=== PATIENT | male | born 1960 | race Caucasian/White ===

== ENCOUNTER 2018-03-07 19:34 | Inpatient (IN) | payer OTHER ==
[2018-03-07 19:40] VITALS: BMI 30.4
--- NOTE | 2018-03-07 19:48 | PDOC ---
Attending Attestation - HPI HPI: 03/07/18 20:49 The patient is a 57 year old male, with a significant past medical history of multiple episodes of food allergies, who presents to the emergency department with an allergic reaction. The patient notes eating at a food truck at around 3: 30pm. The patient states he took a nap and woke up with swelling to his lower face and lip. The patient denies any difficulty swallowing. The patient denies any other symptoms. Allergies: Penicillins Past surgical history: None reported. Social history: Occasional alcohol use - Physicial Exam PE: 03/07/18 20:49 Agrees with the residents note. - Medical Decision Making 03/07/18 20:50 Documentation prepared by Remi Rivera, acting as medical data entry clerk for Cierra Gimenez DO, MD <Remi Rivera - Last Filed: 03/07/18 20:49> - Resident Resident Name: Kyle Daley - ED Attending Attestation I have performed the following: I have examined & evaluated the patient, The case was reviewed & discussed with the resident, I agree w/resident's findings & plan - Physicial Exam PE: 03/07/18 20:52 Agree with resident exam - Critical Care Time Total Critical Care Time: 35 Critical Care Statement: The care of this patient involved high complexity decision making to prevent further life threatening deterioration of the patient 's condition and/or to evaluate & treat vital organ system(s) failure or risk of failure. - Medical Decision Making 57-year-old male with acute ALLERGIC reaction and resulting angioedema for several hours after eating at a food truck Patient failed to improve after IV Solu-Medrol, Pepcid and Benadryl Case discussed with ICU staff for admission for airway monitoring At this time patient has no glottic edema, uvula is within normal limits and there is no acute airway compromise There is no indication for intubation at this time 03/07/18 20:53 <Cierra Gimenez - Last Filed: 03/07/18 20:54>
[2018-03-07] MEDS ORDERED: SODIUM CHLORIDE 1,000 ML IV STA (19:51)
[2018-03-07] MEDS ORDERED: FAMOTIDINE 20 MG/50 ML IVPB 20 MG/50 ML MG IVPB ONE ×2 (19:51→20:05)
[2018-03-07] MEDS ORDERED: methylPREDNISolone NA SUCC 125 MG/2 ML VIAL IVPUSH ONE (19:51)
[2018-03-07] MEDS ORDERED: methylPREDNISolone NA SUCC 125 MG/2 ML VIAL ONE (20:05)
[2018-03-07 20:07] LABS: HEMATOCRIT 45.5 % (35.4-49); HEMOGLOBIN 15.1 GM/dL (11.7-16.9); MCH 29.2 pg (25.7-33.7); MCHC 33.3 g/dl (32.0-35.9); MEAN CELL VOLUME 87.6 fl (80-96); PLATELET COUNT 247 K/MM3 (134-434); RBC 5.19 M/mm3 (4.00-5.60); RDW 13.8 % (11.9-15.9); WHITE BLOOD COUNT 8.3 K/mm3 (4.0-10.0)
[2018-03-07 20:41] LABS: ALBUMIN 3.6 g/dl (3.4-5.0); ALK PHOS 109 U/L (45-117); ANION GAP 7 MMOL/L (8-16); BILIRUBIN,TOTAL 0.2 mg/dL (0.2-1); BLOOD UREA NITROGEN 14 mg/dL (7-18); CALCIUM 8.8 mg/dL (8.5-10.1); CHLORIDE 105 mmol/L (98-107); CO2 31 mmol/L (21-32); CREATININE 1.3 mg/dL (0.55-1.3); GLUCOSE,RANDOM 117 mg/dL (74-106); POTASSIUM 4.1 mmol/L (3.5-5.1); SGOT/AST 20 U/L (15-37); SGPT/ALT 43 U/L (13-61); SODIUM 142 mmol/L (136-145); TOT PROT 6.8 g/dl (6.4-8.2)
--- NOTE | 2018-03-07 20:43 | PDOC ---
History of Present Illness - General Chief Complaint: Allergic Reaction Stated Complaint: ALLERGIC REACTION Time Seen by Provider: 03/07/18 19:44 History Source: Patient Exam Limitations: No Limitations - History of Present Illness Initial Comments: 03/07/18 20:46 Patient is a 57M with a history of multiple food allergies here today complaining of swelling to his lips and mouth that started an hour prior to presentation. Endorses a sensation of swelling to his throat. Denies shortness of breath, wheezing, chest pain, nausea, vomiting and lightheadedness. Has history of other reactions, no ICU stays or intubations. Past History - Past Medical History Allergies/Adverse Reactions: Allergies Allergy/AdvReac Type Severity Reaction Status Date / Time egg Allergy Verified 03/08/18 04:29 milk Allergy Verified 03/08/18 04:29 Penicillins Allergy Verified 03/07/18 19:37 plantain Allergy Verified 03/08/18 04:29 soybean Allergy Verified 03/08/18 04:29 Home Medications: Ambulatory Orders Alfuzosin HCl [Alfuzosin HCl ER] 10 mg PO DAILY 03/07/18 COPD: No - Immunization History Immunization Up to Date: Yes - Suicide/Smoking/Psychosocial Hx Smoking History: Never smoked Have you smoked in the past 12 months: No Information on smoking cessation initiated: No Hx Alcohol Use: No Drug/Substance Use Hx: No Substance Use Type: None Review of Systems - Review of Systems Comments:: 03/07/18 20:52 GENERAL/CONSTITUTIONAL: No fever or chills. No weakness. HEAD, EYES, EARS, NOSE AND THROAT: No change in vision. +lip swelling +throat swelling. CARDIOVASCULAR: No chest pain or shortness of breath RESPIRATORY: No cough, wheezing, or hemoptysis. GASTROINTESTINAL: No nausea, vomiting, diarrhea or constipation. GENITOURINARY: No dysuria, frequency, or change in urination. MUSCULOSKELETAL: No joint or muscle swelling or pain. No neck or back pain. SKIN: No rash NEUROLOGIC: No headache, vertigo, loss of consciousness, or change in strength/ sensation. ALLERGIC/IMMUNOLOGIC: No hives or skin allergy. +lip swelling *Physical Exam - Vital Signs Last Vital Signs Temp Pulse Resp BP Pulse Ox 98.0 F 74 21 H 172/94 H 97 03/07/18 19:38 03/07/18 19:38 03/07/18 19:38 03/07/18 19:38 03/07/18 19:38 - Physical Exam Comments: 03/07/18 20:53 GENERAL: Awake, alert, and fully oriented, in no acute distress HEAD: No signs of trauma, normocephalic, atraumatic EYES: PERRLA, EOMI, sclera anicteric, conjunctiva clear ENT: Swelling to lower lip, normal uvula, airway intact, ?tongue swelling NECK: Normal ROM, supple, no lymphadenopathy, JVD, or masses LUNGS: No distress, speaks full sentences, clear to auscultation bilaterally HEART: Regular rate and rhythm, normal S1 and S2, no murmurs, rubs or gallops, peripheral pulses normal and equal bilaterally. ABDOMEN: Soft, nontender, normoactive bowel sounds. No guarding, no rebound. No masses EXTREMITIES: Normal inspection, Normal range of motion, no edema. No clubbing or cyanosis. NEUROLOGICAL: Cranial nerves II through XII grossly intact. Normal speech, normal gait, no focal sensorimotor deficits SKIN: Warm, Dry, normal turgor, no rashes or lesions noted. Moderate Sedation - Procedure Monitoring Vital Signs: Procedure Monitoring Vital Signs Temperature 98.0 F 03/07/18 19:38 Pulse Rate 74 03/07/18 19:38 Respiratory Rate 21 H 03/07/18 19:38 Blood Pressure 172/94 H 03/07/18 19:38 O2 Sat by Pulse Oximetry (%) 97 03/07/18 19:38 ED Treatment Course - LABORATORY CBC & Chemistry Diagram: 03/08/18 05:15 03/08/18 05:15 - ADDITIONAL ORDERS Additional order review: Laboratory Results 03/07/18 20:00 Sodium 142 Potassium 4.1 Chloride 105 Carbon Dioxide 31 Anion Gap 7 L BUN 14 Creatinine 1.3 Creat Clearance w eGFR 57.31 Random Glucose 117 H Calcium 8.8 Total Bilirubin 0.2 AST 20 ALT 43 Alkaline Phosphatase 109 Total Protein 6.8 Albumin 3.6 03/07/18 19:57 RBC 5.19 MCV 87.6 MCHC 33.3 RDW 13.8 MPV 8.0 - RADIOLOGY Radiology Studies Ordered: Category Date Time Status CHEST X-RAY PORTABLE* [RAD] Stat Radiology 03/07/18 20:41 Ordered - Medications Given in the ED: ED Medications Discontinued Medications Generic Name Dose Route Start Last Admin Trade Name Freq PRN Reason Stop Dose Admin Diphenhydramine HCl 50 mg 03/07/18 19:51 03/07/18 20:17 Benadryl Injection - IVPUSH 03/07/18 19:52 50 mg ONCE ONE Administration Methylprednisolone Sodium Succinate 125 mg 03/07/18 19:51 03/07/18 20:17 Solu-Medrol - IVPUSH 03/07/18 19:52 125 mg ONCE ONE Administration Medical Decision Making - Medical Decision Making 03/07/18 20:54 Patient is a 57M with history of food allergies here today complaining of angioedema. Vitals normal. Airway intact. No anaphylaxis at this time. No reason to intubate. Steroids, benadryl, pepcid IV given. Will monitor and dispo to ICU. EKG shows normal sinus rhythm with rate of 71. No st elevations/depressions. Normal axis. Normal intervals. No significant t wave abnormalities. 03/08/18 06:53 Approved for ICU by Dr Castaneda. *DC/Admit/Observation/Transfer Diagnosis at time of Disposition: Angioedema - Discharge Dispostion Condition at time of disposition: Stable Decision to Admit order: Yes - Referrals - Patient Instructions - Post Discharge Activity
--- NOTE | 2018-03-07 21:01 | PN ---
Teaching Attending Note Name of Resident: Kelly Morocho ATTENDING PHYSICIAN STATEMENT I saw and evaluated the patient. I reviewed the resident's note and discussed the case with the resident. I agree with the resident's findings and plan as documented. SUBJECTIVE: The patient is a 57 year old male, with a significant past medical history of multiple episodes of food allergies, BPH and hypertension who presents to the ER with an allergic reaction. The patient notes eating at a food truck at around 3:30pm. The patient states he took a nap and woke up with swelling to his lower face and lip. The patient denies any difficulty swallowing or SOB. Had a similar episode about 1 year ago after he ate shrimp. No prior intubations. Feeling better after initial treatment in the ER. OBJECTIVE: Alert Vital Signs Period Temp Pulse Resp BP Sys/Hill Pulse Ox Last 24 Hr 98.0 F 74 21 172/94 97 HEENT: No Jaundice, eye redness or discharge, PERRLA, EOMI. No stridor. Normocephalic, atraumatic. External ears are normal and hearing is grossly intact. No nasal discharge. Neck: Supple, nontender. No palpable adenopathy or thyromegaly. No JVD Chest: Good effort. Clear to auscultation and percussion. Heart: Regular. No S3, rub or murmur Abdomen: Not distended, soft, nontender and no HSM. No rebound or guarding. Normoactive bowel sounds. Ext: Peripheral pulses intact. No leg edema. Skin: Warm and dry. No petechiae, rash or ecchymosis. Neuro: Alert. Oriented x3. CN 2-12 grossly intact. Sensation grossly intact in all four extremities and DTR are symmetric. Home Medications Medication Instructions Recorded Unobtainable Home Med List 0 dose .ROUTE UTDICT 10/03/13 Abnormal Lab Results 03/07/18 20:00 Anion Gap 7 L Random Glucose 117 H ASSESSMENT AND PLAN: 1. Angioedema - Being admitted to the ICU for close monitoring. Will continue solumedrol, Pepcid and benadryl and have an emergency tracheostomy kit by his bedside. Patient counseled about being careful with where he gets his food. 2. Obesity - Will provide patient all the necessary assistance, counseling and positive reinforcement to facilitate weight loss. Consult rn security. 3. Will add an antihypertensive drug tomorrow if BP remains high. Nonpharmacologic measures to control hypertension like weight loss, salt restriction and exercise discussed. 4. DVT prophylaxis - Lovenox 40 mg SQ q 24 hours. 5. Advance directives - Full code
--- NOTE | 2018-03-07 21:54 | HP ---
CHIEF COMPLAINT:angioedema x 6 hrs PCP: Dr. Guzmán HISTORY OF PRESENT ILLNESS: 57 y/o PMH BPH, significant hx for past food allergies with similar rxn- lower lip edema, angioedema, never intubated, who presents to the ED with c/o angioedema over the past six hours. As per pt, at 3:30PM he ate patel and rice at a halal truck. Shortly after, he took a nap, and woke up at 4pm to see that his lower lip and lower portion of his face was edematous. At this time, pt was with increased throat pressure, however never with trouble swallowing. Endorses recent RUE rash 2/2 poison susanne, as he works in construction. Has applied calamine lotion with mild relief. Denies GARDNER, fever, chills, SOB, wheezing, or changes in urinary or bowel function. Pt is allergic to plaintains, milk, eggs, soy beans, all of which cause angioedema. Also is allergic to PCN which causes hives. No recent known exposure to any of these components. No recent medication changes, or fam hx of allergies. ER course was notable for: (1) benadryl 50mg IVPx1 (2) medrol 125mg IVP x 1 (3) pepcid (4) NS Recent Travel: denies PAST MEDICAL HISTORY: as above PAST SURGICAL HISTORY: 3rd R digit injury Social History: works in construction as a welder and fitter. has chronic erythema on forehead Smoking: denies Alcohol: socially Drugs: denies Family History: mother DM, arthritis. father, brother- heart dz, Allergies Penicillins Allergy (Verified 03/07/18 19:37) - hives egg, milk, plaintain, soybean - angioedema HOME MEDICATIONS: Home Medications Medication Instructions Recorded Alfuzosin HCl [Alfuzosin HCl ER] 10 mg PO DAILY 03/07/18 confirmed with family member at bedside REVIEW OF SYSTEMS CONSTITUTIONAL: Absent: fever, chills, diaphoresis, generalized weakness, malaise, loss of appetite, weight change HEENT: +lip swelling Absent: rhinorrhea, nasal congestion, throat pain, throat swelling, difficulty swallowing, mouth swelling, ear pain, eye pain, visual changes CARDIOVASCULAR: Absent: chest pain, syncope, palpitations, irregular heart rate, lightheadedness , peripheral edema RESPIRATORY: Absent: cough, shortness of breath, dyspnea with exertion, orthopnea, wheezing, stridor, hemoptysis GASTROINTESTINAL: Absent: abdominal pain, abdominal distension, nausea, vomiting, diarrhea, constipation, melena, hematochezia GENITOURINARY: Absent: dysuria, frequency, urgency, hesitancy, hematuria, flank pain, genital pain MUSCULOSKELETAL: Absent: myalgia, arthralgia, joint swelling, back pain, neck pain SKIN: Absent: rash, itching, pallor HEMATOLOGIC/IMMUNOLOGIC: Absent: easy bleeding, easy bruising, lymphadenopathy, frequent infections ENDOCRINE: Absent: unexplained weight gain, unexplained weight loss, heat intolerance, cold intolerance NEUROLOGIC: Absent: headache, focal weakness or paresthesias, dizziness, unsteady gait, seizure, mental status changes, bladder or bowel incontinence PSYCHIATRIC: Absent: anxiety, depression, suicidal or homicidal ideation, hallucinations. PHYSICAL EXAMINATION Vital Signs - 24 hr 03/07/18 19:38 Temperature 98.0 F Pulse Rate 74 Respiratory 21 H Rate Blood Pressure 172/94 H O2 Sat by Pulse 97 Oximetry (%) GENERAL: Sitting up comfortably in bed. Awake, alert, and fully oriented, in no acute distress. on 2L NC HEAD: Normal with no signs of trauma. EYES: Pupils equal, round and reactive to light, extraocular movements intact, sclera anicteric, conjunctiva clear. EARS, NOSE, THROAT: Ears normal, nares patent, oropharynx clear without exudates. Moist mocous membranes. +mild uvula swelling however visualized. NECK: Normal range of motion, supple LUNGS: Breath sounds equal, clear to auscultation bilaterally. No wheezes, and no crackles. No accessory muscle use. HEART: Regular rate and rhythm, normal S1 and S2 without murmur, rub or gallop. ABDOMEN: Soft, nontender, not distended, normoactive bowel sounds, no guarding LOWER EXTREMITIES: 2+ pt pulses, warm, well-perfused. No calf tenderness. No peripheral edema. NEUROLOGICAL: Cranial nerves II-XII intact. 5/5 motor strength UE, LE . sensation intact PSYCHIATRIC: Cooperative. Good eye contact. SKIN: Warm, dry, normal turgor, +rash -dorsal R forearm - pruritic Laboratory Results - last 24 hr 03/07/18 03/07/18 19:57 20:00 WBC 8.3 RBC 5.19 Hgb 15.1 Hct 45.5 MCV 87.6 MCH 29.2 MCHC 33.3 RDW 13.8 Plt Count 247 MPV 8.0 Sodium 142 Potassium 4.1 Chloride 105 Carbon Dioxide 31 Anion Gap 7 L BUN 14 Creatinine 1.3 Creat Clearance w eGFR 57.31 Random Glucose 117 H Calcium 8.8 Total Bilirubin 0.2 AST 20 ALT 43 Alkaline Phosphatase 109 Total Protein 6.8 Albumin 3.6 ASSESSMENT/PLAN: 57 y/o PMH BPH, significant hx for past food allergies with similar rxn- lower lip edema, angioedema, never intubated, who presents to the ED with c/o angioedema over the past six hours after eating at a food truck. #Angioedema likely 2/2 food allergy -with significant allergy hx to multiple foods, with recent ingestion at food truck - likely allergen contamination -c/w pepcid, benadryl, medrol 40mg IVP TID -need to have emergency trach kit at bedside in case cannot protect airway -NPO until speech/swallow consult -ICU monitoring #BPH -on alfuzosin at home, will not start at this time -can restart on d/c #HTN- uncontrolled -was to start on bystolic by PCP, as per pt -as above, can start on d/c . less likely to cause angioedema -for now rec lifestyle mods #F/E/N no IVF req at this time continue to follow lytes NPO until speech and swallow eval #PPX DVT: lovenox 40mg SQ qd #Dispo ICU for airway monitoring. can d/c tomorrow if no issues protecting airway will likely need to go home on 1 week PO pred taper, w/pepcid, benadryl to prevent recurrence Visit type - Emergency Visit Emergency Visit: Yes ED Registration Date: 03/07/18 Care time: The patient presented to the Emergency Department on the above date and was hospitalized for further evaluation of their emergent condition. - New Patient This patient is new to me today: Yes Date on this admission: 03/08/18 - Critical Care Critical Care patient: Yes Total Critical Care Time (in minutes): 44 Critical Care Statement: The care of this patient involved high complexity decision making to prevent further life threatening deterioration of the patient 's condition and/or to evaluate & treat vital organ system(s) failure or risk of failure.
[2018-03-07] MEDS ORDERED: CHLORHEXIDINE GLUCONATE 4% CLEANSER FOR DECOLONIZATION TP SCH (22:00)
[2018-03-07] MEDS ORDERED: MUPIROCIN 2% TOPICAL OINTMENT FOR DECOLONIZATION NS SCH (22:00)
[2018-03-07] MEDS ORDERED: methylPREDNISolone NA SUCC 40 MG/1 ML VIAL IVPUSH SCH (22:00)
[2018-03-07] MEDS: FAMOTIDINE 20 MG/50 ML IVPB 20 MG/50 ML MG IVPB SCH (22:15)
[2018-03-07] MEDS ORDERED: SODIUM CHLORIDE 1,000 ML IV SCH (22:45)
[2018-03-08] MEDS ORDERED: methylPREDNISolone NA SUCC 40 MG/1 ML VIAL IVPUSH SCH (02:00)
[2018-03-08] MEDS ORDERED: methylPREDNISolone NA SUCC 40 MG/1 ML VIAL ONE (03:08)
[2018-03-08 05:45] LABS: BASO % 0.6 % (0-2.0); HEMATOCRIT 44.1 % (35.4-49); HEMOGLOBIN 14.7 GM/dL (11.7-16.9); LYMPH % 10.6 % (8-40); MCHC 33.3 g/dl (32.0-35.9); MEAN CELL VOLUME 87.1 fl (80-96); MEAN PLT VOLUME 7.9 fl (7.5-11.1); MONO % 0.8 % (3.8-10.2); PLATELET COUNT 238 K/MM3 (134-434); RBC 5.06 M/mm3 (4.00-5.60); RDW 13.8 % (11.9-15.9); WHITE BLOOD COUNT 7.9 K/mm3 (4.0-10.0)
[2018-03-08 06:30] LABS: ANION GAP 9 MMOL/L (8-16); BLOOD UREA NITROGEN 14 mg/dL (7-18); CALCIUM 8.5 mg/dL (8.5-10.1); CHLORIDE 111 mmol/L (98-107); CO2 23 mmol/L (21-32); CREATININE 1.2 mg/dL (0.55-1.3); GLUCOSE,RANDOM 173 mg/dL (74-106); MAGNESIUM 1.9 mg/dL (1.8-2.4); POTASSIUM 4.5 mmol/L (3.5-5.1); SODIUM 143 mmol/L (136-145)
[2018-03-08] MEDS ORDERED: POTASSIUM PHOSPHATE 30 MM in DEXTROSE 5%-WATER - 250 ML IVPB ONE (06:37)
[2018-03-08] MEDS ORDERED: FAMOTIDINE 20 MG/50 ML IVPB 20 MG/50 ML MG IVPB ONE (09:08)
[2018-03-08] MEDS: FAMOTIDINE 20 MG/50 ML IVPB 20 MG/50 ML MG IVPB SCH (09:24)
[2018-03-08 09:26] VITALS: TEMP 98
[2018-03-08] MEDS ORDERED: ENOXAPARIN NA (PORCINE) 40 MG/0.4 ML DISP.SYRIN SQ SCH (10:00)
[2018-03-08] MEDS ORDERED: predniSONE 20 MG TABLET (UD) PO SCH (10:00)
[2018-03-08] MEDS ORDERED: NAPH,MB-DB/K PH,MBDB POWDER PACKET PO SCH (10:00)
--- NOTE | 2018-03-08 14:21 | CONSULT ---
Admitting History and Physical - Admission History of Present Illness: Per EMR: 57 y/o PMH BPH, significant hx for past food allergies with similar rxn- lower lip edema, angioedema, never intubated, who presents to the ED with c/o angioedema over the past six hours after eating at a food truck. # -with significant allergy hx to multiple foods, with recent ingestion at food truck - likely allergen contamination Pt improved, tolerated regular diet in ER. History Source: Patient Limitations to Obtaining History: No Limitations, Language Barrier - Smoking History Smoking history: Never smoked Have you smoked in the past 12 months: No - Alcohol/Substance Use Hx Alcohol Use: No History - Admission Reason For Visit: ANGIOEDEMA - Diagnostics X-ray: Report Reviewed - General Mental Status: Alert and Oriented, Awake and Alert, Able to Follow Commands Attention: Intact Ability to Follow Directions: Excellent Head/Neck Control: WFL - Hearing Hearing: Functional Speech Evaluation - Communication Primary Language: B[place] Secondary Language: [place] Communication: Yes: Within Normal Limits Oral Expression Ability: Yes: No Impairment - Speech Production Able to Make Needs Known: Yes: WNL Intelligibility: Yes: WNL - Speech Characteristics Voice Loudness: Normal Voice Pitch: Yes: Normal Voice Phonatory-based Quality: Yes: Normal Speech Pattern: Normal Speech Clarity: < 100% Nasal Resonance: Normal Articulation: Yes: Precise - Language/Auditory Comprehension Follows: Yes: 2 Stage Simple Commands - Language/Verbal Expression Functional Communication Status: Yes: WNL - Swallow Evaluation/Bedside Assessment Current Nutritional Intake: Regular Oral Secretions: Yes: WFL Dentition: Yes: Adequate Facial Symmetry at Rest: Symmetrical Facial Symmetry on Retraction: Symmetrical Facial Movement: Controlled Sensation: Normal Against Resistance Opening: Normal Against Resistance Closing: Normal Pucker Lips: Normal Smile: Normal Lingual Movement: Normal, Symmetric Lingual Speed of Movement: Normal Lingual Movement Strgth Against Opposition: Normal Lingual Movement Characteristics: Normal Velopharyngeal Movement: Normal Laryngeal Elevation: WFL Laryngeal Movement: Able to Palpate Rate of Intake: WFL Bolus Size: WFL Labial Seal: WFL Chewing: WFL Oral Prep Time: WFL A-P Transit: WFL Pocketing: None Timing of Swallow: WFL Coughing/Throat Clear: No Change in Voice: No Recommendations - Speech Evaluation, Impression/Plan Impression: Angioedema likely 2/2 food allergy. Improved swelling. Pt feels he is back to normal. Denies symptoms of Dysphagia with regular diet/thin liquids. - Dysphagia Impressions/Plan Swallowing Skills: WFL Dysphagia Impressions: No Impairment (Bedside evaluation is WNL.) *Silent aspiration: cannot be R/O at bedside Dysphagia Treatment Plan: OOB for meals Recommendations: Other (ENT if pt c/o symptoms opf angioedema/dysphagia to visualize pharynx.) - Recommendations Diet Consistency: Regular Medication Administration: Whole with water Liquids: Thin Liquids
--- NOTE | 2018-03-08 14:55 | EKG ---
Test Reason : Blood Pressure : / mmHG Vent. Rate : 071 BPM Atrial Rate : 071 BPM P-R Int : 174 ms QRS Dur : 084 ms QT Int : 402 ms P-R-T Axes : 034 011 039 degrees QTc Int : 436 ms NORMAL SINUS RHYTHM NORMAL ECG NO PREVIOUS ECGS AVAILABLE Confirmed by VAL BAUMAN, MARK ([id number]) on 03/08/2018 2:55:22 PM Referred By: Confirmed By:MARK NEAL MD
[2018-03-08 15:16] VITALS: BP 126/61; PULSE 81
--- NOTE | 2018-03-08 15:27 | DS ---
Physical Exam: SUBJECTIVE: Patient seen and examined this AM. He states he is much better than when he came in and the swelling is almost resolved. OBJECTIVE: Vital Signs Period Temp Pulse Resp BP Sys/Hill Pulse Ox Last 24 Hr 97.7 F-98.0 F 64-82 19-21 118-172/71-94 97-99 PHYSICAL EXAM GENERAL: A&O, no acute distress HEAD: Normocephalic, atraumatic. EYES: PERRL, no scleral icterus EARS, NOSE, THROAT: oropharynx with mild swelling in lower lip. Moist mucous membranes. NECK: supple without lymphadenopathy LUNGS: CTA b/l, no crackles or wheezes HEART: Regular rate and rhythm, normal S1 and S2 without murmur ABDOMEN: Soft, nontender to palpation, normoactive bowel sounds MUSCULOSKELETAL: No bony deformities or tenderness. LABS Laboratory Results - last 24 hr 03/07/18 03/07/18 03/07/18 19:57 19:57 20:00 WBC 8.3 RBC 5.19 Hgb 15.1 Hct 45.5 MCV 87.6 MCH 29.2 MCHC 33.3 RDW 13.8 Plt Count 247 MPV 8.0 Absolute Neuts (auto) Neutrophils % Lymphocytes % Monocytes % Eosinophils % Basophils % Nucleated RBC % Sodium 142 Potassium 4.1 Chloride 105 Carbon Dioxide 31 Anion Gap 7 L BUN 14 Creatinine 1.3 Creat Clearance w eGFR 57.31 Random Glucose 117 H Hemoglobin A1c % 6.4 H Calcium 8.8 Phosphorus Magnesium Total Bilirubin 0.2 AST 20 ALT 43 Alkaline Phosphatase 109 Total Protein 6.8 Albumin 3.6 03/08/18 03/08/18 03/08/18 05:15 05:15 12:00 WBC 7.9 RBC 5.06 Hgb 14.7 Hct 44.1 MCV 87.1 MCH 29.0 MCHC 33.3 RDW 13.8 Plt Count 238 MPV 7.9 Absolute Neuts (auto) 6.9 Neutrophils % 88.0 H Lymphocytes % 10.6 Monocytes % 0.8 L Eosinophils % 0.0 Basophils % 0.6 Nucleated RBC % 0 Sodium 143 Potassium 4.5 Chloride 111 H Carbon Dioxide 23 Anion Gap 9 BUN 14 Creatinine 1.2 Creat Clearance w eGFR > 60 Random Glucose 173 H Hemoglobin A1c % Calcium 8.5 Phosphorus 1.0 L* 2.8 Magnesium 1.9 Total Bilirubin AST ALT Alkaline Phosphatase Total Protein Albumin HOSPITAL COURSE: Date of Admission:03/07/18 Date of Discharge: 03/08/18 HPI On Admission: 57 y/o PMH BPH, significant hx for past food allergies with similar rxn- lower lip edema, angioedema, never intubated, who presents to the ED with c/o angioedema over the past six hours. As per pt, at 3:30PM he ate patel and rice at a [employer] truck. Shortly after, he took a nap, and woke up at 4pm to see that his lower lip and lower portion of his face was edematous. At this time, pt was with increased throat pressure, however never with trouble swallowing. Endorses recent RUE rash 2/2 poison susanne, as he works in construction. Has applied calamine lotion with mild relief. Denies GARDNER, fever, chills, SOB, wheezing, or changes in urinary or bowel function. Pt is allergic to plaintains, milk, eggs, soy beans, all of which cause angioedema. Also is allergic to PCN which causes hives. No recent known exposure to any of these components. No recent medication changes, or fam hx of allergies. Hospital Course: Pt was given steroids and pepsid and rapidly improved. He tolerated PO intake and was discharged with 4 more days of Prednisone and pepcid. Of note his Phos level was found to be 1.0. He was repleted with IV and oral phos and given supplements for a few days. He was instructed to follow up with his primary care physician to have his phos checked in a few days. He was given info for the resident clinic if he is unable to get an appointment with his primary. Minutes to complete discharge: 35 Discharge Summary Reason For Visit: ANGIOEDEMA Current Active Problems Angioedema (Acute) Condition: Stable - Instructions Diet, Activity, Other Instructions: You were admitted for a likely allergic reaction with lip swelling. You were given steroids and pepcid and your symptoms improved. You are medically safe for discharge at this point. Your phosphorous levels were found to be very low. You were given repletion via IV and by mouth. Continue all of your home medications as they are prescribed. You are being discharged with 4 days of prednisone. You should also continue to take pepcid for 4 more days. This has been sent to your pharmacy, however you can purchase it over the counter at the pharmacy. You should also take phosphorous supplements for a few days as well. You should follow up with your primary care physician within one week who may wish to refer you to an hr specialist. You should have your phosphorous levels checked by your primary care physician in 2 days following discharge. If you have any severe or concerning symptoms, you should be seen by your doctor or return to the emergency department. Referrals: Agapito Estrada MD [Primary Care Provider] - Disposition: HOME - Home Medications Comprehensive Discharge Medication List: Ambulatory Orders Alfuzosin HCl [Alfuzosin HCl ER] 10 mg PO DAILY 03/07/18 Famotidine [Pepcid -] 20 mg PO DAILY #4 tablet 03/08/18 Meloxicam 15 mg PO DAILY PRN 03/08/18 Naph,Mb-Db/K pH,Mbdb [PHOS-NaK PACKET -] 1 packet PO DAILY #4 pow 03/08/18 predniSONE [Deltasone -] 40 mg PO DAILY #8 tablet 03/08/18 This patient is new to me today: Yes Date on this admission: 03/08/18 Emergency Visit: Yes ED Registration Date: 03/07/18 Care time: The patient presented to the Emergency Department on the above date and was hospitalized for further evaluation of their emergent condition. Critical Care patient: No - Discharge Referral Referred to [facility] No
--- NOTE | 2018-03-08 16:58 | PN ---
Teaching Attending Note Name of Resident: Ronak Avalos ATTENDING PHYSICIAN STATEMENT I saw and evaluated the patient. I reviewed the resident's note and discussed the case with the resident. I agree with the resident's findings and plan as documented. SUBJECTIVE Feels much better, lip swelling significantly improved. Denies throat scratching , difficulty breathing or swallowing. OBJECTIVE Afebrile, Hemodynamically Stable. Last Vital Signs Temp Pulse Resp BP Pulse Ox 98 F 81 20 126/61 100 03/08/18 15:15 03/08/18 15:15 03/08/18 15:15 03/08/18 15:15 03/08/18 15:15 HEENT - Atraumatic, Normocephalic Heart - S1, S2, RRR Lungs - clear to auscultation, no crackles/wheeze. No stridor. Abdomen - Soft, non-tender. Bowel Sounds normal. Extremities - no edema. No calf tenderness. Laboratory Results - last 24 hr 03/07/18 03/07/18 03/07/18 19:57 19:57 20:00 WBC 8.3 RBC 5.19 Hgb 15.1 Hct 45.5 MCV 87.6 MCH 29.2 MCHC 33.3 RDW 13.8 Plt Count 247 MPV 8.0 Absolute Neuts (auto) Neutrophils % Lymphocytes % Monocytes % Eosinophils % Basophils % Nucleated RBC % Sodium 142 Potassium 4.1 Chloride 105 Carbon Dioxide 31 Anion Gap 7 L BUN 14 Creatinine 1.3 Creat Clearance w eGFR 57.31 Random Glucose 117 H Hemoglobin A1c % 6.4 H Calcium 8.8 Phosphorus Magnesium Total Bilirubin 0.2 AST 20 ALT 43 Alkaline Phosphatase 109 Total Protein 6.8 Albumin 3.6 03/08/18 03/08/18 03/08/18 05:15 05:15 12:00 WBC 7.9 RBC 5.06 Hgb 14.7 Hct 44.1 MCV 87.1 MCH 29.0 MCHC 33.3 RDW 13.8 Plt Count 238 MPV 7.9 Absolute Neuts (auto) 6.9 Neutrophils % 88.0 H Lymphocytes % 10.6 Monocytes % 0.8 L Eosinophils % 0.0 Basophils % 0.6 Nucleated RBC % 0 Sodium 143 Potassium 4.5 Chloride 111 H Carbon Dioxide 23 Anion Gap 9 BUN 14 Creatinine 1.2 Creat Clearance w eGFR > 60 Random Glucose 173 H Hemoglobin A1c % Calcium 8.5 Phosphorus 1.0 L* 2.8 Magnesium 1.9 Total Bilirubin AST ALT Alkaline Phosphatase Total Protein Albumin ASSESSMENT/PLAN 57 year old male with BPH, HTN, prior history of food allergies, presented to # ED with swollen lips several hours after eating from a food truck. No difficulty breathing or swallowing. He was diagnosed with Angioedema secondary to likely food allergy - Given IV Solumedrol, H2 berenice, Benadryl and monitored overnight with no events and with full resolution of symptoms. Medically and Hemodynamically stable for discharge on 4 additional days of prednisone and H2 berenice. Hypophosphatemia - repleted.
== END 2018-03-08 15:30 | disposition home or self-care (01) | DRG 811 ==
LOC: JER 19:34 → JERBED 20:57
PROVIDERS: ADMIT Internal Medicine
DX: T78.3XXA Angioneurotic edema, initial encounter (principal); E83.39 Other disorders of phosphorus metabolism; N40.0 Benign prostatic hyperplasia without lower urinary tract symptoms; I10 Essential (primary) hypertension; E66.9 Obesity, unspecified; Z88.0 Allergy status to penicillin; X58.XXXA Exposure to other specified factors, initial encounter; Z91.012 Allergy to eggs; Z91.011 Allergy to milk products; Z68.30 Body mass index [BMI] 30.0-30.9, adult
CPT/HCPCS: 36415; 71045-TC-FY; 80048; 80053; 83036; 83735; 84100; 85025; 85027; 93005; 93010; 99284-25; J7030

== ENCOUNTER 2021-09-02 08:38 | Emergency (ER) | payer OTHER ==
[2021-09-02 08:46] VITALS: RESP 18; BMI 30.4
[2021-09-02] MEDS ORDERED: KETOROLAC TROMETHAMINE 15 MG/ML VIAL IVPUSH ONE (09:41)
[2021-09-02] MEDS ORDERED: KETOROLAC TROMETHAMINE 15 MG/ML VIAL ONE (09:44)
[2021-09-02 10:33] LABS: BASO % 0.7 % (0-2.0); EOS % 9.5 % (0-4.5); HEMATOCRIT 47.2 % (35.4-49); HEMOGLOBIN 14.9 GM/dL (11.7-16.9); LYMPH % 24.9 % (8-40); MCH 28.4 pg (25.7-33.7); MCHC 31.5 g/dl (32.0-35.9); MEAN CELL VOLUME 90.2 fl (80-96); MEAN PLT VOLUME 8.4 fl (7.5-11.1); MONO % 4.6 % (3.8-10.2); NEUT % 60.3 % (42.8-82.8); PLATELET COUNT 224 10^3/uL (134-434); RBC 5.24 M/mm3 (4.00-5.60); RDW 17.7 % (11.9-15.9); WHITE BLOOD COUNT 7.9 K/mm3 (4.0-10.0)
[2021-09-02 12:59] LABS: ALBUMIN 3.5 g/dl (3.4-5.0); CALCIUM 8.9 mg/dL (8.5-10.1)
[2021-09-02 13:00] LABS: BLOOD UREA NITROGEN 14.7 mg/dL (7-18)
[2021-09-02 13:03] LABS: CREATININE 1.1 mg/dL (0.55-1.3)
[2021-09-02 13:04] LABS: BILIRUBIN,TOTAL 0.3 mg/dL (0.2-1); TOT PROT 6.9 g/dl (6.4-8.2)
[2021-09-02 15:52] VITALS: BP 132/75; PULSE 85; TEMP 98
== END 2021-09-02 15:15 | disposition home or self-care (01) ==
LOC: JER 08:38
PROC: 3E033GC Introduction of Other Therapeutic Substance into Peripheral Vein, Percutaneous Approach (ICD-10-PCS; principal; 2021-09-02)
DX: R07.89 Other chest pain (principal)
CPT/HCPCS: 36415; 71046-TC-FY; 80053; 84484; 85025; 93005; 93010; 99285-25

== ENCOUNTER 2022-02-12 04:19 | Day surgery (SDC) | payer OTHER ==
[2022-02-10 10:54] VITALS: BMI 30.4
[~2022-02-12 04:19] MED LIST: BUPIVACAINE HCL/PF 0.75% 10 ML VIAL PNB ONE; LIDOCAINE 1% P/F 10 MG/ML VIAL PNB ONE
[2022-02-12] MEDS ORDERED: LIDOCAINE HCL 1%, 10 MG/ML (20ML VIAL) ONE (07:18)
[2022-02-12] MEDS ORDERED: TRIAMCINOLONE ACET 40MG/1ML VIAL ONE (07:18)
[2022-02-12] MEDS ORDERED: BUPIVACAINE HCL/PF 0.75% 10 ML VIAL ONE (07:19)
[2022-02-12] MEDS ORDERED: BUPIVACAINE HCL/PF 0.5% (5MG/ML) 10 ML VIAL ONE (07:19)
[2022-02-12 08:39] VITALS: RESP 18
[2022-02-12] MEDS ORDERED: LIDOCAINE 1% P/F 10 MG/ML VIAL PNB ONE ×4 (10:16→10:23)
[2022-02-12] MEDS ORDERED: BUPIVACAINE HCL/PF 0.75% 10 ML VIAL PNB ONE ×2 (10:16→10:23)
[2022-02-12 10:53] VITALS: TEMP 98.7
[2022-02-12 11:40] VITALS: BP 147/84; PULSE 60
== END 2022-02-12 10:55 | disposition home or self-care (01) ==
LOC: JASU-SURG 04:19
PROVIDERS: ATTEND Pain Medicine Pain Medicine
PROC: BR16YZZ Fluoroscopy of Lumbar Facet Joint(s) using Other Contrast (ICD-10-PCS; 2022-02-12)
PROC: 3E0T3BZ Introduction of Anesthetic Agent into Peripheral Nerves and Plexi, Percutaneous Approach (ICD-10-PCS; principal; 2022-02-12 09:15)
DX: M47.816 Spondylosis without myelopathy or radiculopathy, lumbar region (principal)
CPT/HCPCS: 76000-TC-FY